=== PATIENT | male | born 1980 | race Caucasian/White ===

== ENCOUNTER 2016-08-17 20:12 | Emergency (ER) | payer BC ==
[~2016-08-17] VITALS: Ht 188 cm; Wt 120.2 kg
[~2016-08-17 20:12] MED LIST: CIPR-255 PO; INDO-24 PO
[2016-08-17 20:19] VITALS: Ht 188 cm; Wt 120.2 kg
[2016-08-17] MEDS ORDERED: XYLOCAINE 1%/SOD BICARB 20 ML VIAL INFIL ONE (20:45)
[2016-08-17] MEDS ORDERED: DIPHTHERIA/TETANUS/PERTUSSIS 0.5 ML SYR/VIAL IM. ONE (20:45)
--- NOTE | 2016-08-17 20:54 | DIAGNOSTIC IMAGING REPORT ---
RIGHT FINGER(S) MIN 2 VIEWS ROUTINE CLINICAL HISTORY: RIGHT THUMB Right trauma. Pain. COMPARISON: None. DISCUSSION: The bones and joint spaces appear intact. There is no evidence of fracture, dislocation or bony disease. There is no evidence for soft tissue swelling. IMPRESSION: Negative study. Electronically signed by: Raúl Montes M.D. 08/17/2016 8:53 PM Dictated Date/Time: 08/17/2016 8:53 PM
[2016-08-17] MEDS ORDERED: GELATIN SPONGE 12-7MM ONE (21:31)
--- NOTE | 2016-08-17 21:39 | EMERGENCY ROOM VISIT NOTE ---
ED Visit Note First contact with patient: 20:21 CHIEF COMPLAINT: Right thumb laceration 30 minutes ago HISTORY OF PRESENT ILLNESS: Patient is a [id number] 36-year-old white male who presents to the emergency department for evaluation of a laceration to his right thumb that he sustained 30 minutes ago when he accidentally struck it on his table saw blade. Bleeding has been controlled. He is unsure of his last tetanus. He had minimal pain that he rates a 3/10. REVIEW OF SYSTEMS: Review of systems as per HPI. All other systems reviewed were negative. At least 6 systems reviewed. PMH: Electronic medical records are reviewed and summarized as above/below. See Problem List. He is unsure of his last tetanus. SOCIAL HISTORY: Patient lives at home. Employed. Nonsmoker. PHYSICAL EXAM: Vital Signs: Reviewed Nurse's notes. There is a soft tissue skin avulsion of the tip of the right thumb. There is also a distal nail injury , no nailbed laceration or repairable laceration is noted. There is no foreign material in the wound and it looks clean. There is no active bleeding. No deep structures such as tendons or nerves are seen in the base of the wound. Extension, flexion and abduction and adduction of the thumb is full and strong. Sensation to pain and light touch is intact. EMERGENCY DEPARTMENT COURSE: X-rays were obtained and were negative for acute fracture or bony abnormality. Patient's tetanus was updated. Using sterile technique, saline and Betadine cleansing, and 1% lidocaine anesthesia, skin evulsion was cleansed with saline. A nonviable skin flap was debrided. Gelfoam and dressing were applied. Conservative care measures were discussed. Patient does not have any for open fracture. No repairable laceration is noted. Medication reconciliation: I attest that I have personally reviewed the patient' s current medication list. Blood pressure screening: Patient was found to have a slightly elevated blood pressure due to circumstances. I do not believe that the patient requires hypertension monitoring. RIGHT FINGER(S) MIN 2 VIEWS ROUTINE CLINICAL HISTORY: RIGHT THUMB Right trauma. Pain. COMPARISON: None. DISCUSSION: The bones and joint spaces appear intact. There is no evidence of fracture, dislocation or bony disease. There is no evidence for soft tissue swelling. IMPRESSION: Negative study. Problem List Medical Problems: (1) Gout Status: Chronic (2) Right foot infection Status: Resolved (3) Strep throat Status: Resolved Current/Historical Medications No Active Prescriptions or Reported Meds Allergies Coded Allergies: No Known Allergies (Unverified , 03/03/13) Vital Signs Date Time Temp Pulse Resp B/P (MAP) Pulse Ox O2 Delivery O2 Flow Rate FiO2 08/17/16 21:46 36.9 88 18 151/81 96 08/17/16 21:43 36.9 88 18 151/81 96 Room Air 08/17/16 20:19 36.9 92 18 178/90 96 Room Air Medications Administered Medications (Trade) Dose Ordered Sig/Breana Route Start Time Stop Time Status Last Admin Dose Admin Diphtheria/ Pertussis/Tetanus Vacc (Adacel Inj) 0.5 ml ONCE ONCE IM. 08/17/16 20:45 08/17/16 20:46 DC 08/17/16 20:40 0.5 ML Departure Information Impression Primary Impression: Avulsion of skin of right thumb Prescriptions No Active Prescriptions or Reported Meds Referrals No Doctor, Assigned (PCP) Patient Instructions [facility] Additional Instructions Keep dressing in place for 48 hrs, then remove. Soak foam in water until it falls off easily, then clean wound daily, cover with an antibiotic ointment and keep covered until it heals. Return for any signs of infection (increasing redness, swelling, drainage). Ice and elevate for swelling and pain. Ibuprofen 600 mg and Tylenol 1000 mg every 6 hrs for pain.
[2016-08-17 21:46] VITALS: BP 151/81; PULSE 88; TEMP 36.9; O2SAT 96
== END 2016-08-17 21:46 | disposition home or self-care (01) ==
LOC: C.EDB 20:13 → C.EDD 21:46
DX: S61.001A Unspecified open wound of right thumb without damage to nail, initial encounter (principal); W29.3XXA Contact with powered garden and outdoor hand tools and machinery, initial encounter; Z23 Encounter for immunization

== ENCOUNTER 2016-12-26 17:14 | Emergency (ER) | payer BC ==
[~2016-12-26] VITALS: Ht 190.5 cm; Wt 117.3 kg
[2016-12-26 17:24] VITALS: TEMP 37.2; Ht 190.5 cm; Wt 117.3 kg
[2016-12-26] MEDS ORDERED: OXYC1CAP5 PO (17:48)
--- NOTE | 2016-12-26 18:07 | DIAGNOSTIC IMAGING REPORT ---
R ANKLE MIN 3 VIEWS ROUTINE CLINICAL HISTORY: Right ankle pain status post trauma COMPARISON: None. DISCUSSION: No acute fractures or subluxations are visualized. There is mild soft tissue swelling. There is a tiny Achilles insertional spur. There are minimal degenerative changes present. IMPRESSION: No fractures or subluxations identified. Electronically signed by: Bernabe Hood M.D. 12/26/2016 6:06 PM Dictated Date/Time: 12/26/2016 6:06 PM
[2016-12-26 18:25] VITALS: BP 144/81; PULSE 90; O2SAT 97
--- NOTE | 2016-12-27 02:23 | EMERGENCY ROOM VISIT NOTE ---
ED Visit Note First contact with patient: 17:26 Chief Complaint: Right ankle pain. History of Present Illness: Mr. Almanza is a 36-year-old white male who ambulates into the ED complaining of right ankle pain. Patient reports on Friday, 2 days ago, he was in the [place] hunting and tripped in a ground hog hole and injured his ankle. From his description of the injury the stairs to be an inversion injury. Since that time he has been having increasing pain and swelling over the lateral aspect of the right ankle. He describes his pain as a constant throbbing and intermittent sharp pain. He rates his discomfort 6/10. His pain is nonradiating. His pain worsens with ambulation and inversion. He has not identified any alleviating factors related to the pain. He reports he has been using ice, rest and Percocet without relief of his discomfort. He denies any associated hip pain, knee pain, foot pain, leg weakness/numbness/ tingling. Additionally he denies any previous significant injuries or surgeries to the ankle or foot. Review of Systems: As noted above in history of present illness. Past Medical History: Patient denies. Current Medications: Percocet. Allergies to Medications: Patient denies. Social History: Patient is currently employed; he feels safe in his home environment; he denies tobacco use and admits to alcohol use. Physical Examination: Vital Signs: Date Time Temp Pulse Resp B/P (MAP) Pulse Ox O2 Delivery O2 Flow Rate FiO2 12/26/16 18:25 90 16 144/81 97 12/26/16 17:24 37.2 92 18 155/92 98 Room Air GENERAL: 36-year-old male in mild distress due to pain, nontoxic-appearing, afebrile and hemodynamically stable. NEUROLOGICAL: Awake, alert and oriented to person, place and time. Answering questions appropriately and following commands. SKIN: Warm, dry and pink. No soft tissue trauma noted. RIGHT LOWER EXTREMITY: No gross bony deformities. No shortening or malrotation. No tenderness in the hip, thigh, knee or lower leg. Moderate tenderness over the ligamentous structures anterior inferior to the lateral malleolus. I do not appreciate any bony deformity or crepitus. There is some ecchymosis in this area that extends down into the dorsal aspect of the foot and into the toes. He has full range of motion in flexion and extension of the knee and plantar flexion and dorsiflexion of the ankle. I do not appreciate any ligamentous laxity but he has moderate increase in pain with inversion. Distal pulses and sensations are intact. ED Course: Patient is assessed as noted above. Patient's medication list was reviewed. Patient was offered pain medication and refused. Right Ankle X-Ray: Was read by myself and the radiologist showing no acute fractures or dislocations. Mild soft tissue swelling and minimal degenerative changes were noted. Patient was placed in a gel splint and on nonweightbearing crutches. Patient was educated about today's findings and instructed on his treatment plan ; he verbalized understanding and agreement with this plan. Clinical Impression: Right ankle sprain. Disposition: Patient discharged home in stable condition; prior to departure he was reassessed and subjectively reported he was feeling the same. Plan: Comfort measures including rest, ice, elevation, gel splint and crutches use and alternating ibuprofen and acetaminophen were discussed with the patient. Patient was encouraged follow-up with orthopedics if no better in 7-10 days. Patient was encouraged return ED for worsening/uncontrolled pain, uncontrolled swelling, foot weakness/numbness/tingling or any new/concerning symptoms.
== END 2016-12-26 18:28 | disposition home or self-care (01) ==
LOC: C.EDB 17:15 → C.EDD 18:28
DX: S93.401A Sprain of unspecified ligament of right ankle, initial encounter (principal); W17.2XXA Fall into hole, initial encounter; Y92.828 Other wilderness area as the place of occurrence of the external cause